=== PATIENT | male | born 1965 | race Caucasian/White ===

== ENCOUNTER → 2024-09-18 | Outpatient (BNVA) | payer MEDICAID, SELFPAY | END | disposition home or self-care (01) | PROVIDERS: PCP Nurse Practitioner Family; Referring Provider Nurse Practitioner Family; Visit Provider Nurse Practitioner Family | DX: E53.8 Deficiency of other specified B group vitamins (principal); E72.12 Methylenetetrahydrofolate reductase deficiency; R21 Rash and other nonspecific skin eruption; R52 Pain, unspecified | CPT/HCPCS: 99214 ==

== ENCOUNTER → 2024-12-26 | Outpatient (BNVA) | payer MEDICAID, SELFPAY | END | disposition home or self-care (01) | PROVIDERS: PCP Nurse Practitioner Family; Referring Provider Nurse Practitioner Family; Visit Provider Nurse Practitioner Family | DX: R53.1 Weakness (principal) | CPT/HCPCS: 99215 ==

== ENCOUNTER → 2025-01-02 | Outpatient (CLI) | payer MEDICAID, SELFPAY ==
--- NOTE | 2025-01-02 12:15 | XR_ITS ---
Examination: MRI brain without intravenous contrast. Date and time of exam: January 02, 2025 1230 hours Comparison December 07, 2023 INDICATIONS: Dizziness head pain 12 years, numbness arms and hands legs and feet Technique: Multiple axial and sagittal images of the brain obtained. Siemens high-resolution 1.5 [place] short bore scanners utilized. Sagittal sections, T1-weighted, TR 500, TE 14, are performed. Axial sections proton-density and T2-weighted have been obtained. Inversion recovery axial images, TR 9, 260, TE 111, TI 2500. Diffusion weighted images, axial sections, TR 4800, TE 128, B value 1000 Axial sections, ADC map, TR 4800, TE 128 Findings: Enlargement of the sella turcica is not present. The optic chiasm and infundibular are not remarkable. Prepontine and interpeduncular cisterns are not enlarged. There is no localized enlargement of the medulla or marisela. Fourth ventricle and cerebellar tonsils appear normal in position. No subacute area of hemorrhage density is seen. Mass in the cerebellopontine angle region is not evident. Globes symmetrical. Orbital musculature including medial lateral rectus muscles do not exhibit abnormality. Diffusion-weighted images demonstrate no focus of restricted diffusion. Increased white matter signal again noted, scattered punctate foci increased signal in the white matter Mass effect upon the ventricular system is not identified. Impression: Scattered punctate foci increased signal in the white matter unchanged compared with the prior study, demyelinating disease pattern
== END | disposition home or self-care (01) ==
LOC: SMRI 11:50
PROVIDERS: PCP Nurse Practitioner Family; Referring Provider Nurse Practitioner Family; Visit Provider Nurse Practitioner Family
DX: R90.82 White matter disease, unspecified (principal); G89.29 Other chronic pain
CPT/HCPCS: 70551

== ENCOUNTER → 2025-01-15 | Outpatient (BNVA) | payer MEDICAID, SELFPAY | END | disposition home or self-care (01) | PROVIDERS: PCP Nurse Practitioner Family; Referring Provider Nurse Practitioner Family; Visit Provider Nurse Practitioner Family | DX: Z71.2 Person consulting for explanation of examination or test findings (principal); E72.12 Methylenetetrahydrofolate reductase deficiency; E53.8 Deficiency of other specified B group vitamins; E55.9 Vitamin D deficiency, unspecified; A48.1 Legionnaires' disease; R42 Dizziness and giddiness; R52 Pain, unspecified; R53.1 Weakness; N40.0 Benign prostatic hyperplasia without lower urinary tract symptoms; R97.20 Elevated prostate specific antigen [PSA]; E78.5 Hyperlipidemia, unspecified | CPT/HCPCS: 99212; G0463 ==

== ENCOUNTER 2025-01-20 07:53 | Outpatient (RCR) | payer MEDICAID, SELFPAY | END 2025-02-03 23:59 | disposition home or self-care (01) | LOC: SCTC 07:53 | PROVIDERS: PCP Nurse Practitioner Family; Referring Provider Nurse Practitioner Family; Visit Provider Nurse Practitioner Family | DX: E72.12 Methylenetetrahydrofolate reductase deficiency (principal); E53.8 Deficiency of other specified B group vitamins | CPT/HCPCS: 99213; G0463 ==